=== PATIENT | female | born 2000 | race Caucasian/White ===

== ENCOUNTER 2020-02-05 19:15 | Emergency (ER) | payer OTHER ==
[~2020-02-05] VITALS: Ht 157.5 cm; Wt 49.9 kg
[2020-02-05 19:20] VITALS: BP 110/64
== END 2020-02-05 21:07 | disposition home or self-care (01) ==
LOC: ER 19:22
DX: S13.4XXA Sprain of ligaments of cervical spine, initial encounter (principal); J45.909 Unspecified asthma, uncomplicated; V49.49XA Driver injured in collision with other motor vehicles in traffic accident, initial encounter; Y93.89 Activity, other specified; Y92.488 Other paved roadways as the place of occurrence of the external cause; Y99.8 Other external cause status

== ENCOUNTER 2020-02-09 16:32 | Emergency (ER) | payer OTHER ==
[~2020-02-09] VITALS: Ht 157.5 cm; Wt 49.9 kg
[2020-02-09 16:38] VITALS: BP 100/80
[2020-02-09] MEDS ORDERED: SILVER SULFADIAZINE CREAM 25 GM TUBE ONE (16:52)
[2020-02-09] MEDS ORDERED: MUPIROCIN OINT 2% 22 GM TUBE ONE (16:52)
[2020-02-09] MEDS ORDERED: SILVER SULFADIAZINE CREAM 25 GM TUBE TP ONE (17:00)
[2020-02-09] MEDS ORDERED: MUPIROCIN OINT 2% 22 GM TUBE TP ONE (17:00)
== END 2020-02-09 17:07 | disposition home or self-care (01) ==
LOC: ER 16:35
DX: T23.242A Burn of second degree of multiple left fingers (nail), including thumb, initial encounter (principal); J45.909 Unspecified asthma, uncomplicated; X19.XXXA Contact with other heat and hot substances, initial encounter; Y93.89 Activity, other specified; Y92.89 Other specified places as the place of occurrence of the external cause; Y99.8 Other external cause status